=== PATIENT | female | born 1950 | race Caucasian/White ===

== ENCOUNTER 2019-04-11 02:19 | Emergency (ER) | payer BC, MEDICARE ==
[2019-04-11] MEDS ORDERED: predniSONE 20 MG TAB ONE (03:00)
[2019-04-11] MEDS ORDERED: Albuterol Sulfate 2.5 mg/0.5 ml Neb ONE (03:04)
[2019-04-11] MEDS ORDERED: Albuterol Sulfate 2.5 mg/3 ml Neb ONE (03:04)
--- NOTE | 2019-04-11 08:08 | RAD ---
CHEST 1 VIEW PORTABLE: Date: 04/11/19 HISTORY: Congestion, cough, wheezing, and shortness of breath. COMPARISON: 05/31/15. FINDINGS: Heart size is within normal limits. Hyperinflation changes. No confluent pneumonia, overt edema, or p leural effusion. IMPRESSION: Hyperinflation. No acute process. POS: [facility]
== END 2019-04-11 04:00 | disposition home or self-care (01) ==
LOC: ERS 02:19
DX: J20.9 Acute bronchitis, unspecified (principal); F17.210 Nicotine dependence, cigarettes, uncomplicated
CPT/HCPCS: 71045; 94640; J7512; J7611; J7620